=== PATIENT | male | born 1995 | race Hispanic/Latino ===

== ENCOUNTER 2018-12-04 13:06 | Emergency (ER) | payer BC ==
[2018-12-04 13:26] VITALS: RESP 16; TEMP 98.4
--- NOTE | 2018-12-04 14:24 | ED PDOC ---
Arrival/HPI - General Chief Complaint: Back Pain Time Seen by Provider: 12/04/18 13:10 Historian: Patient - History of Present Illness Narrative History of Present Illness (Text): 12/04/18 14:18 23 year old male, with no significant past medical history, who presents to the emergency department complaining of and neck pain and upper back pain since yesterday. Patient states he was snowboarding yesterday when he fell and landed on his back. He states that the pain is worse when turning his head or lying down. he noted the pain is bilateral in the back but more on the L. He notes he hasn't tried taking any medication at home to relieve the pain. Patient denies fevers, chills, headache, dizziness, chest pain, shortness of breath, dyspnea on exertion, cough, abdominal pain, nausea, vomiting, diarrhea, or any other complaint. Time/Duration: 24 hours Symptom Onset: Gradual Symptom Course: Unchanged Activities at Onset: Significant Context: Other (snowboarding) Past Medical History - Provider Review Nursing Documentation Reviewed: Yes - Psychiatric Hx Psychophysiologic Disorder: No Hx Substance Use: No Family/Social History - Physician Review Nursing Documentation Reviewed: Yes Family/Social History: No Known Family HX Smoking Status: Never Smoked Hx Alcohol Use: Yes Frequency of alcohol use: Socially Hx Substance Use: No Allergies/Home Meds Allergies/Adverse Reactions: Allergies No Known Allergies Allergy (Verified 12/04/18 13:20) Review of Systems - Physician Review All systems were reviewed & negative as marked: Yes - Review of Systems Constitutional: absent: Fevers Cardiovascular: absent: Chest Pain Physical Exam - Physical Exam Narrative Physical Exam (Text): 12/04/18 14:24 Constitutional: No acute distress. Head: Normocephalic. Atraumatic. Eyes: PERRL. ENT: Moist mucous membranes. Neck: Supple. No midline tenderness. Cardiovascular: Regular rate. Chest: No tenderness. Respiratory: Clear to auscultation bilaterally. GI: Soft. Nontender. Nondistended. Back: No midline tenderness, left paraspinal tenderness thoracic and lumbar,reproducible tenderness with palpation or movement Musculoskeletal: No tenderness or swelling of extremities. Skin: No rash. Neurologic: Alert, no focal deficit. Vital Signs Reviewed: Yes Vital Signs Temp Pulse Resp BP Pulse Ox 12/04/18 13:20 98.4 F 63 16 134/82 97 Temperature: Afebrile Blood Pressure: Normal Pulse: Regular Respiratory Rate: Normal Appearance: Positive for: Well-Appearing, Non-Toxic, Comfortable Pain Distress: None Mental Status: Positive for: Alert and Oriented X 3 Medical Decision Making ED Course and Treatment: 12/04/18 14:27 Impression: 23 year old male who presents to the emergency department complaining of back and neck pain. Plan: -- Toradol - Medication Orders Current Medication Orders: Ketorolac Tromethamine (Toradol) 60 mg IM STAT STA Stop: 12/04/18 14:18 - Scribe Statement The provider has reviewed the documentation as recorded by the Sherriibmary ann Coffman Provider Scribe Attestation: All medical record entries made by the Scribe were at my direction and personally dictated by me. I have reviewed the chart and agree that the record accurately reflects my personal performance of the history, physical exam, medical decision making, and the department course for this patient. I have also personally directed, reviewed, and agree with the discharge instructions and disposition. Disposition/Present on Arrival - Present on Arrival Any Indicators Present on Arrival: No History of DVT/PE: No History of Uncontrolled Diabetes: No Urinary Catheter: No History of Decub. Ulcer: No History Surgical Site Infection Following: None - Disposition Have Diagnosis and Disposition been Completed?: Yes Diagnosis: Back pain Disposition: HOME/ ROUTINE Disposition Time: 14:38 Patient Plan: Discharge Condition: STABLE Discharge Instructions (ExitCare): Muscle Strain Prescriptions: Cyclobenzaprine [Cyclobenzaprine HCl] 10 mg PO Q8H #12 tab Famotidine [Pepcid] 1 tab PO BID #14 tab Ibuprofen [Motrin] 600 mg PO Q6 #25 tab Forms: [facility] ([place]an), WORK NOTE
[2018-12-04 14:49] VITALS: BP 132/65; PULSE 67; O2SAT 99
== END 2018-12-04 14:49 | disposition home or self-care (01) ==
LOC: ED 13:06
DX: M54.9 Dorsalgia, unspecified (principal)
CPT/HCPCS: 96372; 99283; J1885